=== PATIENT | male | born 1995 | race African-American/Black ===

== ENCOUNTER 2022-08-25 04:05 | Emergency (ER) | payer OTHER ==
[2022-08-25 04:37] LABS: ANION GAP 9.7 meq/L (7-15); CHLORIDE,CL 100 mmol/L (98-107); ESTIMATED GFR 92 mL/min (>=60); SODIUM,NA 137 mmol/L (136-145)
[2022-08-25] MEDS ORDERED: Orphenadrine 60 MG/2 ML Inj IM ONE (05:13)
[2022-08-25] MEDS ORDERED: Ketorolac 30 MG/ML SDV IVPUSH ONE (05:13)
[2022-08-25] MEDS ORDERED: Acetaminophen 325 MG Tab PO ONE (05:14)
[2022-08-25] MEDS ORDERED: Acetaminophen/oxyCODONE 325-5 MG Tab PO ONE (05:14)
== END 2022-08-25 09:50 | disposition home or self-care (01) ==
LOC: LL.ED 04:05
DX: M54.2 Cervicalgia (principal); M25.532 Pain in left wrist; M54.50 Low back pain, unspecified; M79.601 Pain in right arm; M79.602 Pain in left arm; E66.9 Obesity, unspecified; V67.5XXA Driver of heavy transport vehicle injured in collision with fixed or stationary object in traffic accident, initial encounter; Y92.410 Unspecified street and highway as the place of occurrence of the external cause
CPT/HCPCS: 36415; 72125; 72128; 72131; 73110-LT; 80053; 80307; 85025; 96372; 96374; 99283; 99284-25; A9270-GY; J1885; J2360